=== PATIENT | male | born 1945 | race Caucasian/White ===

== ENCOUNTER 2018-02-18 12:03 | Emergency (ER) | payer MEDICARE, MEDICAID ==
[2018-02-18] MEDS ORDERED: DIPH/PERTUSS(ACELL)/TETANUS VAC/PF 0.5 ML SYR (>=10YO) IM ONE (14:24)
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
== END 2018-02-18 14:37 | disposition home or self-care (01) ==
LOC: ER 12:03
DX: S91.331A Puncture wound without foreign body, right foot, initial encounter (principal); W45.0XXA Nail entering through skin, initial encounter; Y92.009 Unspecified place in unspecified non-institutional (private) residence as the place of occurrence of the external cause; S80.811A Abrasion, right lower leg, initial encounter; X58.XXXA Exposure to other specified factors, initial encounter; L03.115 Cellulitis of right lower limb; Z23 Encounter for immunization
CPT/HCPCS: 90471; 90715; 99283

== ENCOUNTER 2018-04-03 13:13 | Emergency (ER) | payer MEDICARE, MEDICAID ==
[2018-04-03 13:35] VITALS: BP 156/81
[2018-04-03] MEDS ORDERED: OXYCODONE-ACETAMINOPHEN 5-325 MG TABLET PO ONE (14:00)
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
--- NOTE | 2018-04-04 08:49 | XCELERA REPORT ---
[address] [facility] [id number] Lower Extremity Venous Evaluation Procedure: Color flow and duplex imaging of the veins of the right lower extremity as well as the left Common Femoral vein. Right Sided Venous Evaluation Normal vessel filling wall to wall, compression and augmentation as well as Colour flow down to the infrageniculate veins. Left Sided Venous Evaluation The left common femoral vein is fully compressible. Spontaneous and phasic flow is present in the left common femoral vein. Interpretation Summary No duplex evidence of DVT or obstruction in the right lower extremity nor in the left Common Femoral vein. Name: SHANTHI SYKES JR Age: 73 yrs Gender: Male : 1945 Patient Status: Preadmit Patient Location: ER Study Date: 04/03/2018 03:25 PM Reason For Study: Right leg DVT Ordering Physician: ESTEFANY POWER Performed By: Mary Jo Walker : ESTEFANY POWER > Deric Cruz
== END 2018-04-03 17:30 | disposition home or self-care (01) ==
LOC: ER 13:13
DX: M79.89 Other specified soft tissue disorders (principal); M79.606 Pain in leg, unspecified; F17.200 Nicotine dependence, unspecified, uncomplicated; Z98.890 Other specified postprocedural states; Z88.1 Allergy status to other antibiotic agents
CPT/HCPCS: 99284; 93971 ×2; A9270

== ENCOUNTER 2019-01-28 12:37 | Emergency (ER) | payer MEDICARE, MEDICAID ==
--- NOTE | 2019-01-28 13:29 | ER Document Report ---
ED Medical Screen (RME) - General Chief Complaint: Sinus Congestion Stated Complaint: SINUS PAIN Time Seen by Provider: 01/28/19 13:23 Primary Care Provider: CHAD KEY MD [Primary Care Provider] - Follow up as needed Mode of Arrival: Ambulatory Information source: Patient Notes: 73-year-old male presented to ED for cough times a months with sinus congestion times a week. He states he has a history of high blood pressure but his primary care doctor discharged him without giving him any prescriptions and states that since she has not seen him she would not give him his any prescriptions. Patient is alert oriented coughing with a yellow productive cough. He states he is feeling miserable he thinks he has a sinus infection with a lung infection. He is a former smoker does not smoke anymore has a history of high blood pressure and chronic back pain. He states he does drink monthly. I have greeted and performed a rapid initial assessment of this patient. A comprehensive ED assessment and evaluation of the patient, analysis of test results and completion of medical decision making process will be conducted by an additional ED providers. Dictation of this chart was performed using voice recognition software; therefore, there may be some unintended grammatical errors. TRAVEL OUTSIDE OF THE [place] IN LAST 30 DAYS: No COUNTRY TRAVELED TO/FROM: [facility] - Related Data Allergies/Adverse Reactions: mycin Allergy (Uncoded 02/18/18 12:30) Past Medical History - Social History Frequency of alcohol use: Rare - Past Medical History Cardiac Medical History: Reports: Hx Hypertension Renal/ Medical History: Denies: Hx Peritoneal Dialysis Past Surgical History: Reports: Hx Neurologic Surgery - spinal chord stimulator, Hx Orthopedic Surgery - R leg fx Physical Exam - Vital signs Vitals: Temp Pulse Resp BP Pulse Ox 98.8 F 87 16 194/101 H 96 01/28/19 13:07 01/28/19 13:07 01/28/19 13:07 01/28/19 13:07 01/28/19 13:07 Course - Vital Signs Vital signs: Temp Pulse Resp BP Pulse Ox 98.8 F 87 16 194/101 H 96 01/28/19 13:07 01/28/19 13:07 01/28/19 13:07 01/28/19 13:07 01/28/19 13:07 Doctor's Discharge - Discharge Referrals: CHAD KEY MD [Primary Care Provider] - Follow up as needed
--- NOTE | 2019-01-28 13:55 | RADIOLOGY REPORT (SQ) ---
EXAM DESCRIPTION: CHEST 2 VIEWS COMPLETED DATE/TIME: 01/28/2019 1:39 pm REASON FOR STUDY: Productive cough with congestion COMPARISON: 01/25/2016 EXAM PARAMETERS: NUMBER OF VIEWS: two views TECHNIQUE: Digital Frontal and Lateral radiographic views of the chest acquired. RADIATION DOSE: NA LIMITATIONS: none FINDINGS: LUNGS AND PLEURA: No opacities, masses or pneumothorax. No pleural effusion. MEDIASTINUM AND HILAR STRUCTURES: No masses or contour abnormalities. HEART AND VASCULAR STRUCTURES: Heart size is borderline. There is no pulmonary edema. BONES: No acute findings. HARDWARE: Neurostimulator electrode in the thoracic spine. OTHER: No other significant finding. IMPRESSION: Borderline cardiomegaly without pulmonary edema. TECHNICAL DOCUMENTATION: JOB ID: [id number] [employer]- All Rights Reserved Reading location - IP/workstation name: [email or web address]
[2019-01-28 14:35] LABS: ABSOLUTE BASOPHILS # (AUTO) 0.1 10^3/uL (0.0-0.2); ABSOLUTE EOSINOPHILS # (AUTO) 0.3 10^3/uL (0.0-0.6); ABSOLUTE LYMPHOCYTES (AUTO) 1.3 10^3/uL (0.5-4.7); ABSOLUTE MONOCYTES (AUTO) 0.9 10^3/uL (0.1-1.4); ABSOLUTE NEUT (AUTO) 5.5 10^3/uL (1.7-8.2); BASOPHILS % (AUTO) 0.7 % (0-2); EOSINOPHILS % (AUTO) 3.9 % (0-6); HEMOGLOBIN 12.8 g/dL (13.5-17.0); LYMPHOCYTES % (AUTO) 16.3 % (13-45); MEAN CORPUSCULAR HEMOGLOBIN 30.6 pg (27.0-33.4); MEAN CORPUSCULAR HGB CONC 34.5 g/dL (32.0-36.0); MEAN CORPUSCULAR VOLUME 89 fl (80-97); PLATELET COUNT 280 10^3/uL (150-450); RED BLOOD COUNT 4.17 10^6/uL (4.35-5.55); RED CELL DISTRIBUTION WIDTH 13.4 % (11.5-14.0); SEGMENTED NEUTROPHILS % (AUTO) 68.1 % (42-78); TOTAL CELLS COUNTED % (AUTO) 100 %
[2019-01-28 14:55] LABS: ALANINE AMINOTRANSFERASE 37 U/L (21-72); ALBUMIN 4.3 g/dL (3.5-5.0); ALKALINE PHOSPHATASE 76 U/L (38-126); ANION GAP 8 (5-19); ASPARTATE AMINO TRANSFERASE 30 U/L (17-59); BILIRUBIN,DIRECT 0.3 mg/dL (0.0-0.4); BILIRUBIN,TOTAL 0.5 mg/dL (0.2-1.3); BLOOD UREA NITROGEN 24 mg/dL (7-20); CALCIUM 9.5 mg/dL (8.4-10.2); CARBON DIOXIDE 28 mmol/L (22-30); CHLORIDE 105 mmol/L (98-107); GLUCOSE 119 mg/dL (75-110); POTASSIUM 4.7 mmol/L (3.6-5.0); TOTAL PROTEIN 7.5 g/dL (6.3-8.2)
--- NOTE | 2019-01-28 19:01 | ER Document Report ---
ED General - General Chief Complaint: Sinus Congestion Stated Complaint: SINUS PAIN Time Seen by Provider: 01/28/19 13:23 Primary Care Provider: CHAD KEY MD [Primary Care Provider] - Follow up as needed Mode of Arrival: Ambulatory TRAVEL OUTSIDE OF THE [place] IN LAST 30 DAYS: No COUNTRY TRAVELED TO/FROM: [facility] - [facility] Notes: Patient is a 73-year-old male that presents to the emergency department for chief complaint of cough and sinus congestion. Patient reports cough for the last 2 weeks and sinus congestion for the last 7 to 10 days. He reports increased sputum production. He states he is getting some shortness of breath with exertion because of the amount of mucus he has. He has been using Mucinex and Nasonex for the last week with minimal improvement. He denies associated fevers. He denies any chest pain, nausea/vomiting, sweats and chills and abdominal pain. Patient is a former smoker. He denies history of COPD or asthma Past Medical History: Hypertension, chronic back pain Past Surgical History: Orthopedic surgeries Social History: Former smoker. Denies alcohol and drug use Family History: Reviewed and noncontributory for presenting illness Allergies: Reviewed, see documented allergy list. REVIEW OF SYSTEMS: CONSTITUTIONAL : No fever No chills No diaphoresis No recent illness EENT: No vision changes congestion No sore throat CARDIOVASCULAR: No chest pain No palpitations RESPIRATORY: shortness of breath cough No difficulty breathing GASTROINTESTINAL: No abdominal pain No nausea No vomiting No diarrhea GENITOURINARY: No dysuria No hematuria No difficulty urinating MUSCULOSKELETAL: No back pain No leg pain No arm pain SKIN: No rashes No lesions LYMPHATIC: No swollen, enlarged glands. NEUROLOGICAL: No lightheadedness No headache No weakness No paresthesias PSYCHIATRIC: No anxiety No depression PHYSICAL EXAMINATION: Vital signs reviewed, nursing noted reviewed. GENERAL: Well-appearing, well-nourished and in no acute distress. HEAD: Atraumatic, normocephalic. EYES: Eyes appear normal, extraocular movements intact, sclera anicteric, conjunctiva are normal. ENT: Bilateral nasal mucosal edema and rhinorrhea, frontal and maxillary sinus tenderness to percussion bilaterally, oropharynx clear without exudates. Moist mucous membranes. NECK: Normal range of motion, supple without lymphadenopathy LUNGS: Breath sounds mildly diminished to auscultation bilaterally and equal. No wheezes rales or rhonchi. HEART: Regular rate and rhythm without murmurs ABDOMEN: Protuberant, soft, nontender, normoactive bowel sounds. No rebound, guarding, or rigidity. No masses appreciated. EXTREMITIES: Nontender, good range of motion, no pitting or edema. NEUROLOGICAL: No focal neurological deficits. Moves all extremities spontaneously Motor and sensory grossly intact on exam. PSYCH: Normal mood, normal affect. SKIN: Warm, Dry, normal turgor, no rashes or lesions noted on exposed skin - Related Data Allergies/Adverse Reactions: mycin Allergy (Uncoded 02/18/18 12:30) Past Medical History - General Information source: Patient - Social History Smoking Status: Unknown if Ever Smoked Frequency of alcohol use: Rare Family History: Reviewed & Not Pertinent Patient has suicidal ideation: No Patient has homicidal ideation: No - Past Medical History Cardiac Medical History: Reports: Hx Hypertension Renal/ Medical History: Denies: Hx Peritoneal Dialysis Past Surgical History: Reports: Hx Neurologic Surgery - spinal chord stimulator, Hx Orthopedic Surgery - R leg fx Physical Exam - Vital signs Vitals: Temp Pulse Resp BP Pulse Ox 98.8 F 87 16 194/101 H 96 01/28/19 13:07 01/28/19 13:07 01/28/19 13:07 01/28/19 13:07 01/28/19 13:07 Course - Re-evaluation Re-evalutation: 01/28/19 19:00 Vitals reviewed. Nursing notes reviewed. Patient is hypertensive but has been out of his Toprol-XL 100 mg for the last 2 weeks. He is currently in between primary care doctors which is why he ran out of his medications. Patient's x- ray shows no pneumonia. He has no leukocytosis to suggest severe underlying infection. The remainder of his work-up is unremarkable. He is oxygenating well on room air and in no respiratory distress. His symptoms are consistent with sinusitis. He will be started on Augmentin. He will continue using Mucinex and Nasonex. He will follow with primary care. He was also given a r efill of his blood pressure medications and counseled on the importance of medication compliance. Patient also counseled on return precautions. He is stable at discharge. Laboratory 01/28/19 01/28/19 14:08 14:08 WBC 8.0 RBC 4.17 L Hgb 12.8 L Hct 37.0 L MCV 89 MCH 30.6 MCHC 34.5 RDW 13.4 Plt Count 280 Seg Neutrophils % 68.1 Lymphocytes % 16.3 Monocytes % 11.0 Eosinophils % 3.9 Basophils % 0.7 Absolute Neutrophils 5.5 Absolute Lymphocytes 1.3 Absolute Monocytes 0.9 Absolute Eosinophils 0.3 Absolute Basophils 0.1 Sodium 141.1 Potassium 4.7 Chloride 105 Carbon Dioxide 28 Anion Gap 8 BUN 24 H Creatinine 1.10 Est GFR ( Amer) > 60 Est GFR (Non-Af Amer) > 60 Glucose 119 H Calcium 9.5 Total Bilirubin 0.5 Direct Bilirubin 0.3 Neonat Total Bilirubin Not Reportable Neonat Direct Bilirubin Not Reportable Neonat Indirect Bili Not Reportable AST 30 ALT 37 Alkaline Phosphatase 76 Total Protein 7.5 Albumin 4.3 Chest X-Ray 01/28/19 13:26 IMPRESSION: Borderline cardiomegaly without pulmonary edema. - Vital Signs Vital signs: Temp Pulse Resp BP Pulse Ox 98.8 F 87 16 194/101 H 96 01/28/19 13:07 01/28/19 13:07 01/28/19 13:07 01/28/19 13:07 01/28/19 13:07 - Laboratory Result Diagrams: 01/28/19 14:08 01/28/19 14:08 Laboratory results interpreted by me: 01/28/19 01/28/19 14:08 14:08 RBC 4.17 L Hgb 12.8 L Hct 37.0 L BUN 24 H Glucose 119 H Discharge - Discharge Clinical Impression: Sinusitis Qualifiers: Sinusitis location: unspecified location Chronicity: acute Recurrence: non- recurrent Qualified Code(s): J01.90 - Acute sinusitis, unspecified Hypertension Qualifiers: Hypertension type: essential hypertension Qualified Code(s): I10 - Essential (primary) hypertension Condition: Stable Disposition: HOME, SELF-CARE Instructions: Sinusitis ([facility]) Additional Instructions: Please return to the emergency department if you have any worsening, or concern of your symptoms. Please return to the emergency department if you develop chest pain, difficulty breathing, severe abdominal pain, or ongoing vomiting. Please follow-up with your primary care physician in 2-3 days and any other recommended physicians. If prescribed, take all medications as directed. If you have any questions or concerns do not hesitate to return the emergency department for evaluation. Continue using Mucinex and Nasonex at home Prescriptions: Amox Tr/Potassium Clavulanate [Augmentin 875-125 Tablet] 1 tab PO BID 10 Days tablet Metoprolol Succinate 100 mg PO DAILY #14 tab.er.24h Referrals: CHAD KEY MD [Primary Care Provider] - Follow up in 3-5 days [facility] [Provider Group] - Follow up in 3-5 days
[2019-01-28 19:14] VITALS: BP 210/105
== END 2019-01-28 19:21 | disposition home or self-care (01) ==
LOC: ER 12:37
DX: J01.90 Acute sinusitis, unspecified (principal); I10 Essential (primary) hypertension; R05 Cough; R09.81 Nasal congestion; R06.02 Shortness of breath; J34.89 Other specified disorders of nose and nasal sinuses; Z87.891 Personal history of nicotine dependence
CPT/HCPCS: 36415; 71046; 80053; 85025; 99283

== ENCOUNTER → 2019-05-14 | Outpatient (CLI) | payer MEDICARE, MEDICAID ==
[2019-05-14 11:37] LABS: HEMATOCRIT 39.3 % (37.9-51.0); HEMOGLOBIN 13.5 g/dL (13.5-17.0); MEAN CORPUSCULAR HEMOGLOBIN 30.2 pg (27.0-33.4); MEAN CORPUSCULAR HGB CONC 34.3 g/dL (32.0-36.0); MEAN CORPUSCULAR VOLUME 88 fl (80-97); PLATELET COUNT 229 10^3/uL (150-450); RED BLOOD COUNT 4.47 10^6/uL (4.35-5.55); RED CELL DISTRIBUTION WIDTH 13.4 % (11.5-14.0); WHITE BLOOD COUNT 6.7 10^3/uL (4.0-10.5)
[2019-05-14 12:00] LABS: ALBUMIN 4.3 g/dL (3.5-5.0); ALKALINE PHOSPHATASE 65 U/L (38-126); ANION GAP 8 (5-19); ASPARTATE AMINO TRANSFERASE 30 U/L (17-59); BILIRUBIN,DIRECT 0.2 mg/dL (0.0-0.4); BILIRUBIN,TOTAL 0.9 mg/dL (0.2-1.3); BLOOD UREA NITROGEN 27 mg/dL (7-20); CALCIUM 9.2 mg/dL (8.4-10.2); CARBON DIOXIDE 28 mmol/L (22-30); CHLORIDE 102 mmol/L (98-107); CHOLESTEROL 194.92 mg/dL (0-200); GLUCOSE 114 mg/dL (75-110); POTASSIUM 5.2 mmol/L (3.6-5.0); TOTAL PROTEIN 7.2 g/dL (6.3-8.2); TRIGLYCERIDES 189 mg/dL (<150)
[2019-05-14 12:11] LABS: DIRECT LDL 122 mg/dL (<100)
[2019-05-14 12:16] LABS: VLDL CHOLESTEROL 37.8 mg/dL (10-31)
== END ==
LOC: LAB 10:57
PROVIDERS: ATTEND Internal Medicine
DX: G47.30 Sleep apnea, unspecified (principal); I10 Essential (primary) hypertension
CPT/HCPCS: 36415; 80053; 80061; 83036; 84443; 85027

== ENCOUNTER → 2019-07-14 | Outpatient (CLI) | payer MEDICARE, MEDICAID ==
--- NOTE | 2019-07-14 15:28 | RADIOLOGY REPORT (SQ) ---
EXAM DESCRIPTION: CHEST PA/LATERAL COMPLETED DATE/TIME: 07/14/2019 2:50 pm REASON FOR STUDY: COUGH COMPARISON: 01/28/2019. EXAM PARAMETERS: NUMBER OF VIEWS: two views TECHNIQUE: Digital Frontal and Lateral radiographic views of the chest acquired. RADIATION DOSE: NA LIMITATIONS: none FINDINGS: LUNGS AND PLEURA: No opacities, masses or pneumothorax. No pleural effusion. MEDIASTINUM AND HILAR STRUCTURES: No masses or contour abnormalities. HEART AND VASCULAR STRUCTURES: Heart upper limits of normal size. No evidence for failure. BONES: No acute findings. HARDWARE: Spinal stimulator electrodes. Hardware in the cervical spine. OTHER: No other significant finding. IMPRESSION: NO SIGNIFICANT RADIOGRAPHIC FINDING IN THE CHEST. TECHNICAL DOCUMENTATION: JOB ID: [id number] [employer]- All Rights Reserved Reading location - IP/workstation name: [email or web address]
== END ==
LOC: OD 14:38
PROVIDERS: ATTEND Internal Medicine
DX: R05 Cough (principal)
CPT/HCPCS: 71046